=== PATIENT | female | born 1990 | race African-American/Black ===

== ENCOUNTER 2020-03-03 20:36 | Emergency (ER) | payer MEDICAID ==
[~2020-03-03] VITALS: Ht 157.5 cm; Wt 99.8 kg
[2020-03-03] MEDS ORDERED: diphenhdrAMINE HCL 50 MG/1 ML VL IM ONE (21:15)
[2020-03-03] MEDS ORDERED: methylPREDNISolone SOD SUCC 125 MG/2 ML VL IM ONE (21:15)
[2020-03-03 21:30] VITALS: BP 138/80
[2020-03-03] MEDS ORDERED: diphenhdrAMINE HCL 50 MG/1 ML VL IV ONE (21:30)
[2020-03-03] MEDS ORDERED: ACETAMINOPHEN 500 MG TAB PO ONE (21:30)
[2020-03-03] MEDS ORDERED: methylPREDNISolone SOD SUCC 125 MG/2 ML VL IV ONE (21:30)
[2020-03-03] MEDS ORDERED: SODIUM CHLORIDE 0.9% 1,000 ML IV ONE (21:30)
== END 2020-03-03 23:54 | disposition home or self-care (01) ==
LOC: EDBD 20:36 → ER 20:41
DX: T78.40XA Allergy, unspecified, initial encounter (principal); F10.20 Alcohol dependence, uncomplicated; X58.XXXA Exposure to other specified factors, initial encounter; Y90.9 Presence of alcohol in blood, level not specified
CPT/HCPCS: 96361; 96374; 96375; 99284; J1200; J2930

== ENCOUNTER 2020-12-04 17:13 | Emergency (ER) | payer MEDICAID ==
[~2020-12-04] VITALS: Ht 157.5 cm; Wt 106.6 kg
[2020-12-04 19:46] VITALS: BP 141/99
== END 2020-12-04 19:47 | disposition home or self-care (01) ==
LOC: ER 17:13
DX: S86.912A Strain of unspecified muscle(s) and tendon(s) at lower leg level, left leg, initial encounter (principal); Z90.49 Acquired absence of other specified parts of digestive tract; X58.XXXA Exposure to other specified factors, initial encounter; Y93.89 Activity, other specified; Y92.89 Other specified places as the place of occurrence of the external cause; Y99.8 Other external cause status
CPT/HCPCS: 93971

== ENCOUNTER 2021-06-14 13:01 | Emergency (ER) | payer MEDICAID ==
[~2021-06-14] VITALS: Ht 157.5 cm; Wt 113.4 kg
[2021-06-14 13:54] LABS: Basophils # (auto) 0.1 10 ^3/uL (0-0.2); Basophils % (auto) 1.2 % (0.0-2.0); Eosinophils # (auto) 0.2 10 ^3/uL (0-0.8); Eosinophils % (auto) 2.2 % (0.0-7.0); Hematocrit 35.5 % (36.0-46.0); Lymphocytes # (auto) 1.2 10 ^3/uL (0.4-5.4); Lymphocytes % (auto) 15.5 % (10.0-50.0); Mean Corpuscular Hemoglobin 28.8 pg (28.0-32.0); Mean Corpuscular Hgb Conc. 33.7 g/dL (32.0-36.0); Mean Corpuscular Volume 85.5 fL (80.0-100.0); Monocytes # (auto) 0.5 10 ^3/uL (0-1.3); Monocytes % (auto) 5.9 % (0.0-12.0); Neutrophils % (auto) 75.2 % (37.0-80.0); Nucleated Red Blood Cells % 0.2 %; Red Blood Cells 4.15 10^6/uL (4.0-5.20); Red Cell Distribution Width 14.8 % (11.8-14.3)
[2021-06-14 14:13] LABS: Albumin 3.5 g/dL (3.4-5.0); Calcium 8.9 mg/dL (8.5-10.1); Potassium 3.6 mmol/L (3.5-5.1)
[2021-06-14 14:17] LABS: BUN/Creatinine Ratio 17.6; Bilirubin, Total 0.6 mg/dL (0.2-1.0); Total Protein 8.2 g/dL (6.4-8.2)
[2021-06-14 14:19] LABS: Amphetamine Screen, Urine NEGATIVE (NEGATIVE); Barbiturate Scree,Urine NEGATIVE (NEGATIVE); Benzodiazephine Screen, Urine NEGATIVE (NEGATIVE); Cannabinoid Screen, Urine NEGATIVE (NEGATIVE); Cocaine Screen, Urine NEGATIVE (NEGATIVE); Opiate Scree,Urine NEGATIVE (NEGATIVE); Phencyclidine Screen, Urine NEGATIVE (NEGATIVE)
[2021-06-14 15:20] LABS: Urine Specific Gravity 1.035 (1.001-1.035)
[2021-06-14 15:21] LABS: Urine Blood 3+ /uL (Negative)
[2021-06-14 16:32] LABS: Urine Bacteria FEW /hpf (None Seen)
[2021-06-15] MEDS ORDERED: IBUPROFEN 600 MG TAB PO ONE (17:00)
[2021-06-15] MEDS: LORazepam 0.5 MG TAB PO PRN (17:40)
[2021-06-16] MEDS ORDERED: IBUPROFEN 800 MG TAB PO ONE (05:00)
[2021-06-16] MEDS: LORazepam 0.5 MG TAB PO PRN (05:05)
[2021-06-16] MEDS ORDERED: CIPROFLOXACIN HCL 500 MG TAB PO ONE (07:00)
[2021-06-16 08:24] VITALS: BP 144/96
== END 2021-06-16 17:27 | disposition left against medical advice (07) ==
LOC: ER 13:01
DX: R45.851 Suicidal ideations (principal); N39.0 Urinary tract infection, site not specified; E66.01 Morbid (severe) obesity due to excess calories; F17.210 Nicotine dependence, cigarettes, uncomplicated; F12.10 Cannabis abuse, uncomplicated; Z98.51 Tubal ligation status; Z90.49 Acquired absence of other specified parts of digestive tract
CPT/HCPCS: 36415; 80053; 80307; 81001; 84484; 85025; 93005

== ENCOUNTER 2021-07-17 04:45 | Emergency (ER) | payer MEDICAID ==
[~2021-07-17] VITALS: Ht 157.5 cm; Wt 113.4 kg
[2021-07-17 06:33] LABS: Albumin 3.6 g/dL (3.4-5.0); BUN/Creatinine Ratio 9.9; Calcium 8.8 mg/dL (8.5-10.1); Potassium 3.9 mmol/L (3.5-5.1)
[2021-07-17 06:36] LABS: Bilirubin, Total 0.6 mg/dL (0.2-1.0); Total Protein 7.8 g/dL (6.4-8.2)
[2021-07-17 06:37] LABS: Basophils # (auto) 0 10 ^3/uL (0-0.2); Basophils % (auto) 0.4 % (0.0-2.0); Eosinophils # (auto) 0 10 ^3/uL (0-0.8); Eosinophils % (auto) 0.4 % (0.0-7.0); Hematocrit 36.4 % (36.0-46.0); Lymphocytes # (auto) 1.4 10 ^3/uL (0.4-5.4); Lymphocytes % (auto) 22.7 % (10.0-50.0); Mean Corpuscular Hemoglobin 28.6 pg (28.0-32.0); Mean Corpuscular Volume 86.8 fL (80.0-100.0); Monocytes # (auto) 0.6 10 ^3/uL (0-1.3); Monocytes % (auto) 10.2 % (0.0-12.0); Neutrophils # (auto) 4.1 10 ^3/uL (1.6-8.6); Neutrophils % (auto) 66.3 % (37.0-80.0); Red Blood Cells 4.19 10^6/uL (4.0-5.20); Red Cell Distribution Width 15.2 % (11.8-14.3); White Blood Cell 6.3 10^3/uL (4.4-10.8)
[2021-07-17 07:28] VITALS: BP 126/70
[2021-07-17 08:58] LABS: Urine Bacteria FEW /hpf (None Seen); Urine Blood 1+ /uL (Negative); Urine Mucus FEW (None Seen); Urine Specific Gravity 1.018 (1.001-1.035); Urine WBC 66 /hpf (0 - 5)
[2021-07-17 09:14] LABS: Alcohol, Urine < 3.0 mg/dL (0-10); Amphetamine Screen, Urine NEGATIVE (NEGATIVE); Barbiturate Scree,Urine NEGATIVE (NEGATIVE); Benzodiazephine Screen, Urine NEGATIVE (NEGATIVE); Cannabinoid Screen, Urine NEGATIVE (NEGATIVE); Cocaine Screen, Urine NEGATIVE (NEGATIVE); Opiate Scree,Urine NEGATIVE (NEGATIVE); Phencyclidine Screen, Urine NEGATIVE (NEGATIVE)
[2021-07-17] MEDS ORDERED: cefTRIAXone W LIDOCAINE 1 GM IM IM ONE (12:15)
[2021-07-17] MEDS ORDERED: CIPR-173 PO ×2 (12:18→12:27)
[2021-07-17] MEDS ORDERED: cefTRIAXone SOD 1,000 MG VL ONE (12:30)
== END 2021-07-17 15:19 | disposition home or self-care (01) ==
LOC: EDBD 04:45 → ER 04:45
DX: R45.851 Suicidal ideations (principal); F32.9 Major depressive disorder, single episode, unspecified; N39.0 Urinary tract infection, site not specified; E66.01 Morbid (severe) obesity due to excess calories; I10 Essential (primary) hypertension; Z68.42 Body mass index [BMI] 45.0-49.9, adult; Z90.49 Acquired absence of other specified parts of digestive tract; Z59.00 Homelessness unspecified
CPT/HCPCS: 36415; 80053; 80307; 81001; 83880; 84443; 84484; 84702; 85025; 85379; 93005; 96372; 99284; J0696